=== PATIENT | male | born 1990 | race Caucasian/White ===

== ENCOUNTER 2017-10-20 14:46 | Emergency (ER) | payer BC ==
[~2017-10-20] VITALS: Ht 177.8 cm; Wt 63.5 kg
[2017-10-20] MEDS ORDERED: KETOROLAC TROME10 MG PO (16:15)
== END 2017-10-20 16:20 | disposition home or self-care (01) ==
LOC: ED 14:46
DX: R10.9 Unspecified abdominal pain (principal); Z88.1 Allergy status to other antibiotic agents
CPT/HCPCS: 74176; 80053; 81001; 85025; 99284; J7030